=== PATIENT | female | born 2000 | race Caucasian/White ===

== ENCOUNTER → 2025-05-26 | Outpatient (CLI) | payer OTHER, SELFPAY ==
[2025-05-26 13:03] LABS: hCG Titer Quant., Serum < 1 mIU/mL (<9 non-preg)
== END | disposition home or self-care (01) ==
LOC: MTLAB 09:47
PROVIDERS: Referring Provider Physician Assistant; Visit Provider Physician Assistant
DX: L70.0 Acne vulgaris (principal)
CPT/HCPCS: 36415; 84702

== ENCOUNTER → 2025-05-28 | Outpatient (CLI) | payer OTHER, SELFPAY ==
--- OUTSIDE RECORDS SUMMARY | 2025-05-28 07:26 | XMS RPT_ITS | CCD ---
Author Organization [facility] Care Team Providers Care Drilling Superintendent Name Role Phone JORGE LANDAVERDE Admitting Unavailable JORGE LANDAVERDE Attending Unavailable JORGE LANDAVERDE Primary Care Unavailable TOÑO OSMAN Consulting Unavailable PROVIDER, UNKNOWN Consulting Unavailable PROVIDER, UNKNOWN Consulting Unavailable PROVIDER, UNKNOWN Consulting Unavailable Leyla Mcgee PA-C Unavailable La DPM, Dr. Maria G Luz Unavailable Sy RUTLEDGEN, [place] Unavailable Russ Cabrera MD Unavailable Greyson RUTLEDGEN, Jessika Pritchett Unavailable Unavailable Osman Moreno MD Unavailable Claire Salinas MA Unavailable Unavailable LIGHTOUT EXAMINER-C, Juan Manuel Virgen Unavailable Shelbi Araujo RN Unavailable Unavaila wily Wang PA-C, Lalitha Sullivan Unavailable Toño Osman MD Unavailable Gale RUTLEDGEN, Jazmine Dasilva Unavailable Unavailable Unavailable Unavailable Claudio Valle LPN Unavailable Unavailable KAYLYNN SEVERINO APRN Attending Unavail able Leyla Mcgee Primary Care Unavailable Erica Dennis Referring Unavailable Erica Dennis Attending Unavailable Medications Current Medications Medication Drug Class(es) Dates Sig (Normalized) Sig (Original) metroNIDAZOLE 500 mg oral tablet (1 source) Nitroimidazole Antimicrobial Start: 02-26-2025 metroNIDAZOLE 500 mg tablet ; 1 (one) tablet two times daily for 7 days Quantity: 14 {Tablet} Refills: 0 Ordered: 26-Feb-2025 BERRY Valle Start: 26-Feb-2025 Start: 02-26-2025 metroNIDAZOLE 500 mg tablet ; 1 (one) tablet two times daily for 7 days Quantity: 14 {Tablet} Refills: 0 Ordered: 26-Feb-2025 BERRY Valleis Start: 26-Feb-2025 Completed/Discontinued Medications Medication Drug Class(es) Dates Sig (Normalized) Sig (Original) cephalexin 500 mg oral tablet (9 sources) Cephalosporin Antibacterial Start: 11-11-2023 End: 11-16-2023 cephALEXin 500 mg tablet ; 2 (two) tablet two times daily for 5 days Quantity: 20 {Tablet} Refills: 0 Ordered: 11-Nov-2023 ZENAIDA Mcgee Start: 11-Nov-2023 End: 16-Nov-2023 Status: Inactive Start: 10-19-2016 End: 10-29-2016 take 1 capsule by mouth three times daily Cephalexin 500 MG Oral Capsule ; 1 Capsule three times daily for 10 days Quantity: 30 {Capsule} Refills: 0 Ordered: 19-Oct-2016 TRISTAN Javed Start: 19-Oct-2016 End: 29-Oct-2016 Status: Inactive mupirocin 0.02 mg/mg topical ointment (5 sources) RNA Synthetase Inhibitor Antibacterial Start: 06-29-2010 End: 07-06-2010 MUPIROCIN, 2% (External Ointment) ; 1 Ointment three times daily for 7 days Quantity: 22 {Gram(s)} Refills: 0 Ordered: 29-Jun-2010 MD Toño Osman Start: 29-Jun-2010 End: 06-Jul-2010 Status: Inactive Problems Active Problems Problem Classification Problem Date Documented Date Episodic/Chronic Abdominal pain (4 sources) Pain in pelvis; Translations: [Pelvic and perineal pain] 02-23-2025 Episodic Genitourinary symptoms and ill-defined conditions (11 sources) Urinary symptoms ; Translations: [Unspecified symptoms and signs involving the genitourinary system] 11-08-2023 Episodic Immunizations and screening for infectious disease (10 sources) Requires a meningitis vaccination; Translations: [Encounter for immunization] 02-11-2017 Episodic Inflammatory diseases of female pelvic organs (2 sources) Bacterial vaginosis; Translations: [Acute vaginitis] 02-26-2025 Episodic Other ear and sense organ disorders (5 sources) Bilateral hearing loss; Translations: [Unspecified hearing loss, bilateral] 06-29-2010 Chronic Other ear and sense organ disorders (7 sources) Impacted cerumen in right ear; Translations: [Impacted cerumen, right ear] 11-08-2023 Episodic Other female genital disorders (11 sources) Vaginal discharge; Translations: [Other specified noninflammatory disorders of vagina] 11-08-2023 Episodic Other screening for suspected conditions (not mental disorders or infectious disease) (4 sources) Abnormal cervical Papanicolaou smear; Translations: [Unspecified abnormal cytological findings in specimens from cervix uteri] 02-23-2025 Episodic Other skin disorders (1 source) Acne vulgaris; Translations: [Acne vulgaris] Onset: 05-26-2025 Episodic Other upper respiratory infections (5 sources) Acute pharyngitis; Translations: [Acute pharyngitis, unspecified] 10-19-2016 Episodic Skin and subcutaneous tissue infections (5 sources) Abscess; Translations: [Cellulitis, unspecified] 06-29-2010 Episodic Unclassified (5 sources) Well adult female - The patient feels well with no complaints, has good energy level and is sleeping well. The first day of the last menstrual period was : (06/04/23). The patient is not using any method of contraception at this time. The patient has a balanced diet and takes no supplemental vitamins & iron. The patient exercises 3 - 4 times per week. The patient sleeps 7 hours per night. The patient's libido is normal. Note for "Well adult female": Patient has never had cervical cancer screening. She has been sexually active with one partner for the last 9 months. She is interested in routine STI testing. 06-18-2023 Viral infection (7 sources) Verruca vulgaris; Translations: [Viral wart, unspecified] 11-08-2023 Episodic Past or Other Problems Problem Classification Problem Date Documented Date Episodic/Chronic Unclassified (5 sources) UTI - Symptoms include dysuria (Patient reports a constant irritation/burning that worsens with irritation.) and urinary frequency, but do not include urinary urgency, hematuria, malodorous urine, flank pain, abdominal pain or back pain. There is no assiciated pain. Onset was gradual 1 week(s) ago. Onset followed sexual intercourse (Patient reports that the symptoms started shortly after she and her boyfriend had sexual intercourse. She reports that they usually use a condom and they did not this time. She reports that he is her only partner and she is his only partner. She is not concerned about STIs at this time. She reports a normal menstrual period approximately a week and a half ago.). The symptoms occur constantly. The patient describes this as moderate in severity and unchanged. Associated symptoms include vaginal discharge (Patient reports that she is having more vaginal discharge than normal. She reports that the discharge is light green in color and has an odor to it, though she has a difficult time describing this odor.), but do not include fever, chills or nausea. 11-08-2023 Unclassified (5 sources) Ear pain - The onset of the pain has been sudden and has been occurring in a persistent pattern for 1 day (last night about 11pm, pt rubbed her right ear then the ear closed. She tried cleaning the ear but feels that it made it worse). The course has been constant. The pain is described as a moderate pressure and plugged. The pain is described as being located in the inner ear. The pain is felt in the right ear. The symptoms have been associated with decreased hearing, while the symptoms have not been associated with chills, fever, non-purulent discharge from ear, purulent discharge from ear, sore throat, runny nose, cough, tinnitus or vertigo. Medical History does not include ear infections. 07-11-2020 Unclassified (5 sources) Warts - Current treatment includes tape occlusion (tried using duct tape). The warts are located on the left hand (thumb and ring finger) and right hand (every finger except index finger). Onset was 4 year(s) ago. The patient describes this as moderate in severity. Associated symptoms include bleeding (at times) and pain. Note for "Warts": Would like to discuss wart removal today. reviewed by [facility] 01-31-2018 Unclassified (5 sources) Well child visit #4 - 13 to 17 years - The child is here for a 16 to 17 year well-child (Pt here today for well child and sports physical. She is accompanied by mom. She will be a senior in high school this year and participating in volleyball. She is due for meningitis vaccine today.) visit. The primary caregiver is the mother and father. There are no behavioral problems. The patient has a balanced diet, is eating a variety of foods and is allowed to eat "junk" foods. Meals/day: 3 (plus snacks.). The child sleeps 7 hours at night. Menstruation: regular periods, no menstrual discomforts and able to maintain daily schedule. The child performs well in school, interacts poorly with peers and participates in extracurricular activities. Safety measures taken include appropriate use of safety belts, home smoke detectors and avoiding exposure to passive smoke. Note for "Well child visit #4 - 13 to 17 years": reviewed by MATTIE 02-11-2017 Unclassified (5 sources) Cold Symptoms - Symptoms include nasal congestion (the last day or two more congested), ear pain (left ear), sore throat, dry cough (sometimes will be a loose cough), fever (had fever and cold chills the first couple of days), chills, general malaise (body aches), headache (some) and facial pain, but do not include runny nose. The onset was sudden 1 week(s) ago. The symptoms occur constantly. The patient describes this as moderate in severity and unchanged. Current treatment includes acetaminophen and NSAIDs. The patient has been exposed to an individual with an upper respiratory infection (possibly at school). Patient denies history of seasonal allergies, recurrent sinusitis, asthma, tonsillectomy or recurrent ear infections. Note for Upper respiratory infection": Reviewed by NEELA. 10-19-2016 Unclassified (5 sources) Well child visit #4 - 13 to 17 years - The child is here for a 16 to 17 year well-child visit. The primary caregiver is the mother and father. There are no behavioral problems. The patient has a balanced diet. The child sleeps 8 hours at night. Menstruation: regular periods. The child performs well in school and participates in extracurricular activities. Safety measures taken include appropriate use of safety belts and home smoke detectors. Note for Well child visit #4 - 13 to 17 years": Sports physical. Will be playing volleyball. Reviewed by NEELA. 02-15-2016 Unclassified (5 sources) Well child visit #4 - 13 to 17 years - The child is here for a 15 to 16 year well-child visit. The primary caregiver is the mother and father. Help and support are being provided by the father. Family status: coping adequately. There are no behavioral problems. The patient has a balanced diet, is eating a variety of foods and is allowed to eat "junk" foods. There are no eating difficulties. Meals/day: 3. The child sleeps 7 hours at night. Menstruation: regular periods and able to maintain daily schedule. The child performs well in school, interacts well with peers and participates in extracurricular activities (volleyball sports PE today). Safety measures taken include appropriate use of safety belts and home smoke detectors. 02-15-2015 Unclassified (5 sources) Form Completion Physicals - The patient feels well with no complaints, has good energy level and is sleeping well. There are no current symptoms. The patient exercises weekly. The patient has an appropriate balanced diet and takes suppemental vitamins and sleeps on average 7 hours per night. Safety measures include appropriate use of car seats/safety belts, appropriate use of helmets, appropriate use of safety belts, avoiding exposure to passive smoke and awareness of dangers of passenger-side air bags. There are no behavioral problems. Note for "Form completion physical": Sports physical for Volleyball 12-11-2013 Unclassified (5 sources) Form Completion Physicals - The patient feels well with no complaints, has good energy level and is sleeping well. There are no current symptoms. The patient takes no supplemental vitamins or iron and sleeps on average 8 hours per night. There are no behavioral problems. Note for "Form completion physical": Needs a form completed for foster care. 09-17-2012 Unclassified (5 sources) Well child visit #3 - 4 to 12 years - The child is here for a follow-up 11 year well-child visit. The primary caregiver is mother and father. There are no behavioral problems. The patient has a balanced diet. There are no eating difficulties. Meals/day: 3. The child sleeps 8 hours at night. The child performs well in school and interacts well with peers. Safety measures taken include appropriate use of car seats/safety belts. Note for "Well child visit #3 - 4 to 12 years": This note has been reviewed and approved in it's entirety by me. 02-22-2012 Unclassified (5 sources) failed hearing - failed 2 hearing tests at school 06-29-2010 Unclassified (2 sources) Abdominal pain - The onset of the abdominal pain has been sudden and has been occurring in a persistent pattern for 4 days. The course has been increasing. The pain is described as a moderate cramping. The pain is located in the suprapubic area and lower abdomen and radiates to the back, left groin and right groin. The symptoms have been associated with diarrhea and vaginal discharge (For approximately a month and a half has had a lot of "green discharge"), while the symptoms have not been associated with bloating, bloody stools, constipation, dark urine, dysuria, fever, nausea, vaginal bleeding, vomiting or weight loss. Note for "Abdominal pain": Pt states "feels like period cramps but I am not on my period". Patient's last period was approximately 2 weeks ago.Patient does report having unprotected sex with a new male partner 1-2 weeks before the discharge started. 02-23-2025 NEGATED: Highlighted row has been ruled out!Unclassified (4 sources) No Known / History Onset: 06-18-2023 11-08-2023 Results Test Name Value Interpretation Reference Range Facility hCG Titer Quant., Serumon HCG QUANT. < 1 Normal <9 non-preg [facility] Comment on above: Order Comment: Result Comment: Gest ational Age 0.2-1 Week: 5-50 mIU/mL 1-2 Weeks: 50-500 mIU/mL 2-3 Weeks: 100-5000 mIU/mL 3-4 Weeks: 500-10,000 mIU/mL 4-5 Weeks:1000-50,000 mIU/mL 5-6 Weeks: 10,000-100,000 mIU/mL 6-8 Weeks: 15,000-200,000 mIU/mL 2-3 Months:10,000-100,000 mIU/mL Performed By: #### L 700.8000 #### [facility] [address] [place], [place], [id number] BVPCRon 05-19-2025 Bacterial Vaginosis Positive Abnormal Negative [facility] Comment on above: Result Comment: Miranda gonzalez methodology performed on the Collective System. Performed By: #### B VPCR, CVTV #### [facility] [address] [place] [id number] CVTVon 05-17-2025 Regis glabrata Negative Normal Negative [facility] Comment on above: Performed By: #### B VPCR, CVTV #### [address] [address] Regis Species Negative Normal Negative [facility] Comment on above: Result Comment: Mole cular methodology performed on the Collective System. Performed By: #### B VPCR, CVTV #### [address] [address] Trichomonas vaginalis Negative Normal Negative [facility] Comment on above: Performed By: #### B VPCR, CVTV #### [address] [address] BV/VAGINITIS PANEL DNA PROBE on 02-26-2025 REGIS: Not detected Normal NOT DETECTED [facility] Comment on above: Performed By: #### 1 [id number] #### [facility] [place] [address] [address] , [address] [place] [address] Case Packer: Jamaal Singletayr MD #### [id number] #### [facility] [place] [address], [address] [place] [address] Case Packer: Jamaal Singletary MD [facility] [place] [address] [address] , [address] [place] [address] Case Packer: Jamaal Singletary MD GARDNERELLA: Detected Abnormal NOT DETECTED [facility] Comment on above: Result Comment: Incr eased levels of G. vaginalis may not be significant in the absence of signs and symptoms of bacterial vaginosis. Performed By: #### 1 [id number] #### [facility] [place] [address], [address] [place] [address] Case Packer: Jamaal Singletary MD #### [id number] #### [facility] [place] [address], [address] [place] [address] Case Packer: Jamaal Singletary MD [facility] [place] [address], [address] [place] [address] Case Packer: Jamaal Singletary MD TRICHOMONAS: Not detected Normal NOT DETECTED [facility] Comment on above: Performed By: #### 1 [id number] #### [facility] [place] [address] , [address] [place] [address] Case Packer: Jamaal Singletary MD #### [id number] #### [facility] [place] [address] , [address] [place] [address] Case Packer: Jamaal Singletary MD [facility] of [address], [address] [place] [address] Case Packer: Jamaal Singletary MD THINPREP TIS PAP REFLEX HPV mRNA E6/E7, CHLAMYDIA/N.GONORRHOEAEon 02-26-2025 CHLAMYDIA TRACHOMATIS RNA, TMA, UROGENITAL Not detected Normal NOT DETECTED [facility] Comment on above: Performed By: #### 1 [id number] #### [facility] of [address] , [address] [place] [address] Case Packer: Jamaal Singletary MD #### [id number] #### [facility] [place] [address] , [address] [place] [address] Case Packer: Jamaal Singletary MD [facility] of [address], [address] [place] [address] Case Packer: Jamaal Singletary MD CLINICAL INFORMATION: Normal [facility] Comment on above: Result Comment: None given Performed By: #### 1 [id number] #### [facility] [place] [address] , [address] [place] [address] Case Packer: Jamaal Singletary MD #### [id number] #### [facility] [place] [address] , [address] [place] [address] Case Packer: Jamaal Singletary MD [facility] of [place] [id number] Case Packer: Jamaal Singletary MD COMMENT Normal [facility] Comment on above: Result Comment: EXPL ANATORY NOTE: The Pap is a screening test for cervical cancer. It is not a diagnostic test and is subject to false negative and false positive results. It is most reliable when a satisfactory sample, regularly obtained, is submitted with relevant clinical findings and history, and when the Pap result is evaluated along with historic and current clinical information. Performed By: #### 1 4577 #### [facility] [place] [address] Case Packer: Jamaal Singletary MD #### [id number] #### [facility] [place] [address] Case Packer: Jamaal Singletary MD [facility] [place] [address] Case Packer: Jamaal Singletary MD Result Comment: The analytical performance characteristics of this assay, when used to test SurePath(TM) specimens have been determined by [facility]. The modifications have not been cleared or approved by the FDA. This assay has been validated pursuant to the CLIA regulations and is used for clinical purposes. For additional information, please refer to https://education.plista/faq/KOS957 (This link is being provided for information/ educational purposes only.) COMMENT: Normal [facility] Comment on above: Result Comment: This Pap test has been evaluated with the ThinPrep(R) Imaging System. Performed By: #### 1 4577 #### [facility] [place] [address] Case Packer: Jamaal Singletary MD #### [id number] #### [facility] [place] [address] Case Packer: Jamaal Singletary MD [facility] [place] [id number] Case Packer: Jamaal Singletary MD YOUTH DEVELOPMENT PROFESSIONAL: Normal [facility] Comment on above: Result Comment: EMP, CT(ASCP) CT screening location: [facility] [place] [address]. CLIA: [id number] Performed By: #### 1 4577 #### [facility] [place] [address] Case Packer: Jamaal Singletary MD #### [id number] #### [facility] [place] [address], [address] [place] [address] Case Packer: Jamaal Singletary MD [facility] [place] [address], [address] [place] [address] Case Packer: Jamaal Singletary MD INTERPRETATION/RESULT: Normal [facility] Comment on above: Result Comment: Cyto logy Results: Negative for intraepithelial lesion or malignancy. Performed By: #### 1 [id number] #### [facility] [place] [address], [address] [place] [address] Case Packer: Jamaal Singletary MD #### [id number] #### [facility] [place] [address], [address] [place] [address] Case Packer: Jamaal Singletary MD [facility] [place] [address], [address] [place] [address] Case Packer: Jamaal Singletary MD LMP: Normal [facility] Comment on above: Result Comment: None given Performed By: #### 1 4577 #### [facility] [place] [address], [address] [place] [address] Case Packer: Jamaal Singletary MD #### [id number] #### [facility] [place] [address], [address] [place] [address] Case Packer: Jamaal Singletary MD [facility] [place] [address], [address] [place] [address] Case Packer: Jamaal Singletary MD NEISSERIA GONORRHOEAE RNA, TMA, UROGENITAL Not detected Normal NOT DETECTED [facility] Comment on above: Performed By: #### 1 4577 #### [facility] [place] [address], [address] [place] [address] Case Packer: Jamaal Singletary MD #### [id number] #### [facility] [place] [address], [address] [place] [address] Case Packer: Jamaal Singletary MD [facility] of [address] , [address] [place], [place] [id number] Case Packer: Jamaal Singletary MD PREV. BX: Normal [facility] Comment on above: Result Comment: None given Performed By: #### 1 4577 #### [facility] [place] [address] , [address] [place], [place] [id number] Case Packer: Jamaal Singletary MD #### [id number] #### [facility] of [address] , [address] [place] [address] Case Packer: Jamaal Singletary MD [facility] of [address], [address] [place] [address] Case Packer: Jamaal Singletary MD PREV. PAP: Normal [facility] Comment on above: Result Comment: None given Performed By: #### 1 4577 #### [facility] of [address] , [address] [place] [address] Case Packer: Jamaal Singletary MD #### [id number] #### [facility] of [address] , [address] [place] [address] Case Packer: Jamaal Singletary MD [facility] of [address], [address] [place] [address] Case Packer: Jamaal Singletary MD REVIEW YOUTH DEVELOPMENT PROFESSIONAL: Normal [facility] Comment on above: Result Comment: NNO, CT(ASCP) CT screening location: [facility] [place] [address]. CLIA: [id number] Performed By: #### 1 4577 #### [facility] of [address] , [address] [place], [place] [id number] Case Packer: Jamaal Singletary MD #### [id number] #### [facility] of [address] , [address] [place], [place] [id number] Case Packer: Jamaal Singletary MD [facility] of [address], [address] [place] [address] Case Packer: Jamaal Singletary MD SOURCE: Normal [facility] Comment on above: Result Comment: Cerv ix, Endocervix Performed By: #### 1 [id number] #### [facility] of [address], [address] [place] [address] Case Packer: Jamaal Singletary MD #### [id number] #### [facility] of [address], [address] [place] [address] Case Packer: Jamaal Singletary MD [facility] of [address], [address] [place] [address] Case Packer: Jamaal Singletary MD STATEMENT OF ADEQUACY: Normal [facility] Comment on above: Result Comment: Sati sfactory for evaluation. Endocervical/transformation zone component present. Performed By: #### 1 4577 #### [facility] [address], [address] [place] [address] Case Packer: Jamaal Singletary MD #### [id number] #### [facility] [address], [address] [place] [address] Case Packer: Jamaal Singletary MD [facility] of [address], [address] [place] [address] Case Packer: Jamaal Singletary MD Laboratory - Chemistry and C hemistry - challengeon 02-23-2025 Bilirubin Ql (U) Negative Normal [facility] [facility].; [facility], [facility]. Ketones Ql (U) trace Normal [facility], [facility].; [facility], [facility]. pH (U) 8.5 [pH] Abnormal [facility].; [facility], [facility]. Specific gravity (U) [Rel density] 1.020 Normal [facility], [facility].; [facility], [facility]. Urobilinogen Qn (U) 1.0 mg/dL Normal [facility], [facility].; [facility], [facility]. Laboratory - Hematology and Cell countson 02-23-2025 Hemoglobin Ql (U) Negative Normal [facility], [facility].; [facility], [facility]. Laboratory - Specimen inform ationon 02-23-2025 Appearance (U) clear Normal [facility] [employer].; [employer]. Color (U) dark Yellow Normal [employer].; [employer]. Laboratory - Urinalysison Glucose Test strip (U) [Mass/Vol] Negative Normal [facility] [employer], [employer]. Leukocyte esterase Test strip Ql (U) trace Normal [facility] [employer].; [employer], [employer]. Nitrite Ql (U) Negative Normal [facility].; [employer], [employer]. Protein Ql (U) 30 mg/dL Abnormal [facility] [employer].; [email or web address], [employer]. No Panel Informationon 02-23 [id number] SEE NOTE Normal [facility] [employer].; [employer]. [id number] SEE NOTE Normal [facility] [employer].; [employer], [employer]. REGIS: Not detected Normal [facility] [employer].; [employer]. CHLAMYDIA TRACHOMATIS RNA, TMA, UROGENITAL Not detected Normal [facility].; [employer]. CLINICAL INFORMATION: SEE NOTE Normal [facility] [employer].; [employer]. COMMENT: SEE NOTE Normal [employer].; [employer]. YOUTH DEVELOPMENT PROFESSIONAL: SEE NOTE Normal [employer].; [employer]. GARDNERELLA: Detected Abnormal [facility] [employer].; [employer]. INTERPRETATION/RESULT: SEE NOTE Normal [facility] [employer].; [employer]. LMP: SEE NOTE Normal [employer].; [employer]. NEISSERIA GONORRHOEAE RNA, TMA, UROGENITAL Not detected Normal [facility].; [employer]. PREV. BX: SEE NOTE Normal [employer].; [employer], [employer]. PREV. PAP: SEE NOTE Normal [employer].; [employer]. REVIEW YOUTH DEVELOPMENT PROFESSIONAL: SEE NOTE Normal [employer].; [employer], [employer]. SOURCE: SEE NOTE Normal [employer].; [employer]. STATEMENT OF ADEQUACY: SEE NOTE Normal [facility].; [employer] TRICHOMONAS: Not detected Normal [facility].; [employer]. Laboratory - Chemistry and C hemistry - challengeon 11-08-2023 Bilirubin Ql (U) Negative Normal [facility].; [employer] Ketones Ql (U) Negative Normal [facility].; [employer]. pH (U) 6.5 [pH] Normal [facility] [employer].; [employer]. Specific gravity (U) [Rel density] 1.025 Normal [facility] [employer].; [employer] Urobilinogen Qn (U) 0.2 mg/dL Normal [facility].; [employer]. Laboratory - Hematology and Cell countson 11-08-2023 Hemoglobin Ql (U) trace, hemolyzed Abnormal [facility].; [employer]. Laboratory - Specimen inform ationon 11-08-2023 Appearance (U) clear Normal [facility]; [employer]. Color (U) yellow Normal [facility] [employer].; [employer]. Laboratory - Urinalysison Glucose Test strip (U) [Mass/Vol] Negative Normal [facility] [employer].; [employer]. Leukocyte esterase Test strip Ql (U) large Abnormal [facility].; [employer]. Nitrite Ql (U) Negative Normal [facility].; [employer]. Protein Ql (U) 30 mg/dL Abnormal [facility] [employer].; [employer]. No Panel Informationon 11-07 REGIS: Not detected Normal [facility] [employer]Me.; [employer]. CULTURE, URINE, ROUTINE SEE NOTE Abnormal [facility].; [employer]. GARDNERELLA: Not detected Normal [facility] [employer].; [employer]. TRICHOMONAS: Not detected Normal [facility].; [employer]. No Panel Informationon 06-18 [id number] SEE NOTE Normal [facility].; [facility] [employer]. [id number] SEE NOTE Normal [facility].; [place] [employer]. [id number] See Below Normal [facility].; [employer]. Work Phone: CHLAMYDIA TRACHOMATIS RNA, TMA, UROGENITAL Not detected Normal [facility].; [employer]. CLIENT CONTACT: SVETLANA Sullivan Normal [facility].; [employer] Work Phone: CLINICAL INFORMATION: SEE NOTE Normal [facility].; [email or web address], [employer]. COMMENT: SEE NOTE Normal [facility].; [employer]. YOUTH DEVELOPMENT PROFESSIONAL: SEE NOTE Normal [facility].; [employer]. GENERAL CATEGORIZATION: SEE NOTE Abnormal [facility].; [employer]. HPV mRNA E6/E7 Not detected Normal [facility].; [employer]. Work Phone: INTERPRETATION/RESULT: SEE NOTE Abnormal [facility].; [email or web address], Inc. LMP: SEE NOTE Normal [facility].; [employer]. NEISSERIA GONORRHOEAE RNA, TMA, UROGENITAL Not detected Normal [facility]iconductor.; [employer]. PATHOLOGIST: SEE NOTE Normal [facility] [employer].; [employer]. PREV. BX: SEE NOTE Normal [facility].; [employer]. PREV. PAP: SEE NOTE Normal [facility] [employer].; [email or web address], Inc. SOURCE: SEE NOTE Normal [facility].; [email or web address], [employer]. STATEMENT OF ADEQUACY: SEE NOTE Normal [facility].; [email or web address], Inc. TEST CODE: VERBAL AUTH Normal [facility].; [employer]. Work Phone: TEST NAME: XIN PIERCE Normal [place] [employer] [facility]; [facility] HospitalC[facility] Work Phone: TESTOSTERONE, TOTAL & FREE, SERUM [CCL]on 03-10-2022 Testosterone, Free, S 0.63 ng/dL Normal <0.13-1.08 [facility] Comment on above: Result Comment: ---- ADDITIONAL INFORMATION This test was developed and its performance characteristics determined by [facility] in a manner consistent with CLIA requirements. This test has not been cleared or approved by the U.S. Food and Drug Administration. Performed By: #### 2 36541 #### [place] [id number] Testosterone, Total, S 35 ng/dL Normal 8-60 [facility] Comment on above: Result Comment: ---- ADDITIONAL INFORMATION Testing performed by Liquid Chromatography-Tandem Mass Spectrometry (LC-MS/MS). This test was developed and its performance characteristics determined by [facility] in a manner consistent with CLIA requirements. This test has not been cleared or approved by the U.S. Food and Drug Administration. Test Performed by: [facility] [place] [address] Motor Transport Inspector: Roge Marti M.D. Ph.D.; CLIA# [id number] Performed By: #### 2 33406 #### [address] [address] PROGESTERONE [CCL]on 022 PROGESTERONE [CCL] Normal [facility] Comment on above: Result Comment: _PRO GESTERONE [CCL]_ SEE SEPARATE REPORT Performed By: #### 2 26191 #### [facility],[address] [place] [address]8598 T3, FREE [CCL]on 03-07-2022 T3, FREE [CCL] Normal [facility] Comment on above: Result Comment: _T3, FREE(CCL)_ SEE SEPARATE REPORT Performed By: #### 2 28813 #### [facility],[address] [place] [address] 27104 DHEA-S [CCL]on 03-01-2022 DHEA-S 297.0 ug/dL Normal 148.0-407.0 [facility] Comment on above: Result Comment: Refe rence ranges are age and gender specific. For additional information, reference range tables can be found in the laboratory test directory. The normal values are based on the following source: Dehydroepiandrosterone sulfate (DHEA S) [package insert V 17.0 [place]ican]. [employer], [place], [place]: February 2013. [facility] [employer] [facility] [place] [address] Arthur Lucio III, M.D. [id number] Performed By: #### 2 79697 #### [facility],[address] [place] [address] ESTRADIOL-17B [CCL]on 2021 Estradiol-17B 142 pg/mL Normal [facility] Comment on above: Result Comment: This test is not suitable for patients receiving treatment with the drug Fulvestrant (Faslodex). The drug causes an interference leading to falsely elevated estradiol results. Menstrual cycle Estradiol reference ranges: Follicular : < 234 pg/mL Ovulation : 41 to 398 pg/mL Luteal : < 342 pg/mL Estradiol reference ranges vary by gestational period: First trimester : 154 to 3243 pg/mL Second trimester : 1561 to 21940 pg/mL Third trimester : 8285 to >89040 pg/mL Post-menopausal Estradiol reference range: < 41 pg/mL Reference: 1. Estradiol - E2 (Estradiol III) [package insert V 3.0 [place]ican]. [employer], [place], [place], December 2015. [facility] [employer] [facility] CenterElectron [place] [address] Arthur Lucio III, M.D. [id number] Performed By: #### 2 75052 #### [facility],[address] [place] [address] 18262 CMP with eGFRon 02-28-2022 AGE 21 years Normal [facility] Comment on above: Performed By: #### 2 88478 #### [facility],[address] [place] [address] 35007 Albumin [Mass/Vol] 4.3 g/dL Normal 3.4 - 5.0 [facility] Comment on above: Performed By: #### 2 74990 #### [facility],[address] [place] [address] 14690 Albumin/Globulin [Mass ratio] 1.5 {ratio} Normal 0.9 - 1.6 [facility] Comment on above: Performed By: #### 2 89140 #### [facility],[address] [place] [address] 29034 ALK PHOS 33 U/L Low 46 - 116 [facility] Comment on above: Performed By: #### 2 71015 #### [facility],[address] [place] [address] 89674 ALT [Catalytic activity/Vol] 46 U/L Normal 14 - 59 [facility] Comment on above: Performed By: #### 2 68185 #### [facility],[address] [place] [address] 63785 Anion gap [Moles/Vol] 16 mmol/L Normal 10 - 20 [facility] Comment on above: Performed By: #### 2 99840 #### [facility],[address] [place] [address] 24376 AST [Catalytic activity/Vol] 31 U/L Normal 13 - 39 [facility] Comment on above: Performed By: #### 2 42778 #### [facility],[address] [place] [address] 07866 B/C RATIO 19 ratio Normal 0 - 30 [facility] Comment on above: Performed By: #### 2 96519 #### [facility],[address] [place] [address] 12582 Bilirubin [Mass/Vol] 0.4 mg/dL Normal 0.2 - 1.0 [facility] Comment on above: Performed By: #### 2 46154 #### [facility],[address] [place] [address] 89508 Calcium [Mass/Vol] 9.2 mg/dL Normal 8.5 - 10.1 [facility] Comment on above: Performed By: #### 2 00698 #### [facility],[address] [place] [address] 85695 Chloride [Moles/Vol] 104 mmol/L Normal 98 - 107 [facility] Comment on above: Performed By: #### 2 79681 #### [facility],[address] [place] [address] 48731 CMP with eGFR Normal [facility] Comment on above: Result Comment: COMP REHENSIVE METABOLIC PANEL Performed By: #### 2 99532 #### [facility],[address] [place] [address] 41313 CO2 [Moles/Vol] 24.8 mmol/L Normal 21.0 - 32.0 [facility] Comment on above: Performed By: #### 2 31907 #### [facility],[address] [place] [address] 67999 Creatinine [Mass/Vol] 0.72 mg/dL Normal 0.55 - 1.02 [facility] Comment on above: Performed By: #### 2 39352 #### [facility],[address] [place] [address] 38968 GFR/1.73 sq M.predicted among non-blacks MDRD (S/P/Bld) [Vol rate/Area] mL/min/{1.73_m2} Normal 60 - 999 [facility] Comment on above: Performed By: #### 2 71920 #### [facility],[address] [place], [place] [id number] Result Comment: ACCO RDING TO THE NATIONAL KIDNEY DISEASE EDUCATION PROGRAM(NKDE), A NORMAL eGFR IS A VALUE GREATER THAN OR EQUAL TO 60 ML/MIN/1.73 SQ METERS. CHRONIC KIDNEY DISEASE: <60mL/MIN/1.73 SQ METERS KIDNEY FAILURE: <15mL/MIN/1.73 SQ METERS THIS TEST SHOULD ONLY BE USED FOR PATIENTS 18 YEARS OF AGE AND OLDER. Globulin (S) [Mass/Vol] 2.8 g/dL Normal 1.5 - 3.8 [facility] Comment on above: Performed By: #### 2 00563 #### [address] [address] Glucose [Mass/Vol] 92 mg/dL Normal 74 - 106 [facility] Comment on above: Performed By: #### 2 88225 #### [address] [address] Potassium [Moles/Vol] 4.1 mmol/L Normal 3.5 - 5.1 [facility] Comment on above: Performed By: #### 2 58118 #### [address] [address] Protein [Mass/Vol] 7.1 g/dL Normal 6.4 - 8.2 [facility] Comment on above: Performed By: #### 2 47116 #### [address] [address] Sodium [Moles/Vol] 141 mmol/L Normal 136 - 145 [facility] Comment on above: Performed By: #### 2 71331 #### [address] [address] Urea nitrogen [Mass/Vol] 14 mg/dL Normal 7 - 18 [facility] Comment on above: Performed By: #### 2 58526 #### [address] [address] CBC + DIFFon 02-27-2022 Baso # 0.00 x10EE3/UL Normal 0.00 - 0.10 [facility] Comment on above: Performed By: #### 2 07527 #### [facility],[address] [place] [address] 59995 Basophils/100 WBC (Bld) 0.5 % Normal 0.0 - 2.0 [facility] Comment on above: Performed By: #### 2 61878 #### [facility],[address] [place] [address] CBC + DIFF Normal [facility] Comment on above: Result Comment: CBC- COMPLETE BLOOD COUNT Performed By: #### 2 50545 #### [facility],[address] [place] [address] EO # 0.00 x10EE3/UL Normal 0.00 - 0.50 [facility] Comment on above: Performed By: #### 2 64867 #### [facility],[address] [place] [address] Eosinophils/100 WBC (Bld) 0.6 % Normal 0.0 - 7.0 [facility] Comment on above: Performed By: #### 2 27786 #### [facility],[address] [place] [address] Erythrocyte distribution width (RBC) [Ratio] 12.6 % Normal 12.0 - 15.6 [facility] Comment on above: Performed By: #### 2 96293 #### [facility],[address] [place] [address] Hematocrit (Bld) [Volume fraction] 40.1 % Normal 34.0 - 46.0 [facility] Comment on above: Performed By: #### 2 48639 #### [facility],[address] [place], [place] [address] Hemoglobin (Bld) [Mass/Vol] 13.3 g/dL Normal 12.0 - 16.0 [facility] Comment on above: Performed By: #### 2 17281 #### [facility],[address] [place] [address] Lymph # 2.10 x10EE3/UL Normal 0.80 - 2.80 [facility] Comment on above: Performed By: #### 2 74009 #### [facility],[address] [place] [address] Lymphocytes/100 WBC (Bld) 27.8 % Normal 20.0 - 45. 0 [facility] Comment on above: Performed By: #### 2 03347 #### [facility],[address] [place] [address] MANUAL DIFF N/A Normal [facility] Comment on above: Performed By: #### 2 95979 #### [facility],[address] [place] [address] MCH (RBC) [Entitic mass] 32 pg Normal 27 - 33 [facility] Comment on above: Performed By: #### 2 94039 #### [facility],[address] [place] [address] MCHC 33 X10 3 Normal 32 - 36 [facility] Comment on above: Performed By: #### 2 33490 #### [facility],[address] [place], [place] [id number] MCV (RBC) [Entitic vol] 98 fL Normal 80 - 99 [facility] Comment on above: Performed By: #### 2 53847 #### [facility],[address] [place] [address] [place] # 0.50 x10EE3/UL Normal 0.20 - 1.00 [facility] Comment on above: Performed By: #### 2 68246 #### [facility],[address] [place] [address] 41349 MONOS % 6.6 % Normal 0.0 - 10.0 [facility] Comment on above: Performed By: #### 2 41859 #### [facility],[address] [place] [address] Morphology Diogo (Bld) [Interp] N/A Normal [facility] Comment on above: Result Comment: {CD] Performed By: #### 2 73655 #### [facility],[address] [place] [address]26 Neut # 4.90 x10EE3/UL Normal 1.50 - 7.10 [facility] Comment on above: Performed By: #### 2 80344 #### [facility],[address] [place] [address] 79672 Neutrophils/100 WBC (Bld) 64.5 % Normal 46.0 - 76. 0 [facility] Comment on above: Performed By: #### 2 65874 #### [facility],[address] [place] [address] 78698 PLATELET 241 x10EE3/UL Normal 150 - 450 [facility] Comment on above: Performed By: #### 2 38456 #### [facility],[address] [place] [address] 20823 Platelet mean volume (Bld) [Entitic vol] 9.4 fL Normal 6.6 - 10.5 [facility] Comment on above: Result Comment: AUTO MATED DIFFERENTIAL Performed By: #### 2 04575 #### [facility],[address] [place] [address] 87751 RBC 4.11 x 10EE6/UL Normal 4.10 - 5.30 [facility] Comment on above: Performed By: #### 2 57795 #### [facility],[address] [place] [address] 86411 WBC 7.5 x 10EE3/UL Normal 4.5 - 10.8 [facility] Comment on above: Performed By: #### 2 95247 #### [facility],[address] [place] [address] 60637 T4-FREE (FREE THYROXINE)on 0 02-27-2022 Free T4 [Mass/Vol] 0.85 ng/dL Normal 0.76 - 1.46 [facility] Comment on above: Result Comment: P otential of falsely elevated results when biotin concentrations are > 10 ng/mL. Performed By: #### 2 49638 #### [address] [address] TSHon 02-27-2022 TSH Qn 1.86 m[IU]/L Normal 0.35 - 3.74 [facility] Comment on above: Performed By: #### 2 64978 #### [address] [address] VITAMIN B-12on 02-27-2022 Cobalamin (Vitamin B12) [Mass/Vol] 569 pg/mL Normal 193 - 986 [facility] Comment on above: Performed By: #### 2 32521 #### [address] [address] VITAMIN D, 25 HYDROXYon 08- VitD 52.40 ng/mL Normal 30.00 - 100 [facility] Comment on above: Result Comment: 25-O HD3 indicates both endogenous production and supplementation. 25-OHD2 is an indicator of exogenous sources, such as diet or supplementation. Therapy is based on measurement of Total 25-OHD, with levels <20 ng/mL indicative of Vitamin D deficiency, while levels between 20 ng/mL and 30 ng/mL suggest insufficiency. Optimal levels are >=30ng/mL. Vitamin D, 25-OH D3 Not Established Vitamin D, 25-OH D2 Not Established Performed By: #### 2 75107 #### [address] [address] Laboratory - Microbiology an d Antimicrobial susceptibilityOrdered By: Shelbi Araujo on 10-19-2016 S. pyogenes Ag EIA Ql (Throat) Negative Normal [facility], [facility].; [facility], [facility]. No Panel Informationon 10-19 MONOSPOT TEST (IN HOUSE) Negative Normal [facility], [facility].; [facility]. Vital Signs Date Time Vital Sign Value Performing Clinician Facility 02-23-2025 14:46-0400 Body height 167.64 cm Claudio Valle BERRY [facility], [facility].; [facility], [facility]. 02-23-2025 14:46-0400 Body mass index (BMI) [Ratio] 23.4 kg/m2 Claudio Valle BERRY [facility], [facility]. 02-23-2025 14:46-0400 Body surface area Derived from formula 1.74 m2 Claudio Valle MENTAL HEALTH SPECIALIST [facility], [facility].; [facility], [facility]. 02-23-2025 14:46-0400 Body weight 65.77 kg Claudio Valle MENTAL HEALTH SPECIALIST [facility], [facility].; [employer] [facility], [facility]. 02-23-2025 14:46-0400 Diastolic blood pressure 68 mm[Hg] Claudio Valle MENTAL HEALTH SPECIALIST [facility], [facility].; [employer] [facility], Inc[employer] Comment on above: Patient Position: Si tting; Cuff Location: Left Arm; Cuff Size: Standard 02-23-2025 14:46-0400 Heart rate 71 /min Claudio Valle MENTAL HEALTH SPECIALIST [facility], [facility].; [employer] [facility], [employer]. Comment on above: Pattern: Regular 02-23-2025 14:46-0400 Systolic blood pressure 104 mm[Hg] Claudio Valle MENTAL HEALTH SPECIALIST [facility], [facility].; [employer] [facility], [employer]. Comment on above: Patient Position: Si tting; Cuff Location: Left Arm; Cuff Size: Standard 11-08-2023 07:52-0400 Body height 167.64 cm Claire Salinas MA [facility], [facility].; [employer] [facility], [facility]. 11-08-2023 07:52-0400 Body mass index (BMI) [Ratio] 22.92 kg/m2 Claire Salinas MA [facility], [facility].; [employer] [facility], [facility]. 11-08-2023 07:52-0400 Body surface area Derived from formula 1.73 m2 Claire Salinas MA [facility].; [employer] [facility], [facility]. 11-08-2023 07:52-0400 Body weight 64.41 kg Claire Salinas MA [facility].; [employer]. 11-08-2023 07:52-0400 Diastolic blood pressure 83 mm[Hg] Claire Salinas MA [facility].; [employer]. Comment on above: Patient Position: Si tting; Cuff Location: Left Arm; Cuff Size: Standard 11-08-2023 07:52-0400 Heart rate 91 /min Claire Salinas MA [facility].; [employer]. Comment on above: Pattern: Regular 11-08-2023 07:52-0400 Systolic blood pressure 124 mm[Hg] Claire Salinas MA [place] [employer].; [employer]. Comment on above: Patient Position: Si tting; Cuff Location: Left Arm; Cuff Size: Standard 06-18-2023 10:02-0500 Body height 167.64 cm Claire Salinas MA [facility].; [employer]. 06-18-2023 10:02-0500 Body mass index (BMI) [Ratio] 23.89 kg/m2 Claire Salinas MA [facility].; [employer]. 06-18-2023 10:02-0500 Body surface area Derived from formula 1.76 m2 Claire Salinas MA [place] [employer] [facility].; [employer]. 06-18-2023 10:02-0500 Body weight 67.13 kg Claire Salinas MA [place] [employer] [facility].; [employer]. 06-18-2023 10:02-0500 Diastolic blood pressure 80 mm[Hg] Claire Salinas MA [place] [employer]. Comment on above: Patient Position: Si tting; Cuff Location: Left Arm; Cuff Size: Standard 06-18-2023 10:02-0500 Heart rate 75 /min Claire Salinas MA [place] [employer].; [employer]. Comment on above: Pattern: Regular 06-18-2023 10:02-0500 Systolic blood pressure 134 mm[Hg] Claire Salinas MA [employer].; [employer]. Comment on above: Patient Position: Si tting; Cuff Location: Left Arm; Cuff Size: Standard 07-11-2020 09:15-0500 Body height 167.64 cm Shelbi Araujo RN [employer] [facility].; [employer]. 07-11-2020 09:15-0500 Body mass index (BMI) [Ratio] 19.85 kg/m2 Shelbi Araujo RN [employer].; [employer]. 07-11-2020 09:15-0500 Body surface area Derived from formula 1.63 m2 Shelbi Araujo RN [employer].; [employer]. 07-11-2020 09:15-0500 Body temperature 98.1 [degF] Shelbi Araujo RN [employer].; [employer]. Comment on above: Method: Tympanic 07-11-2020 09:15-0500 Body weight 55.79 kg Shelbi Araujo RN [employer].; [employer]. 07-11-2020 09:15-0500 Diastolic blood pressure 75 mm[Hg] Shelbi Araujo RN [employer].; [employer]. Comment on above: Patient Position: Si tting; Cuff Location: Right Arm; Cuff Size: Standard 07-11-2020 09:15-0500 Heart rate 79 /min Shelbi Araujo RN [employer].; [employer]. Comment on above: Pattern: Regular 07-11-2020 09:15-0500 Systolic blood pressure 125 mm[Hg] Shelbi Araujo RN [employer].; [employer]. Comment on above: Patient Position: Si tting; Cuff Location: Right Arm; Cuff Size: Standard 01-31-2018 08:47-0400 Body height 167.64 cm Shelbi Araujo RN [employer].; [employer]. 01-31-2018 08:47-0400 Body mass index (BMI) [Percentile] Per age and sex 39 % Shelbi Araujo RN [employer].; [employer]. 01-31-2018 08:47-0400 Body mass index (BMI) [Ratio] 20.66 kg/m2 Shelbi Araujo RN [employer] [facility], [employer].; [employer]. 01-31-2018 08:47-0400 Body surface area Derived from formula 1.65 m2 Shelbi Araujo RN [employer] [employer] [facility], [employer].; [employer]. 01-31-2018 08:47-0400 Body temperature 98.2 [degF] Shelbi Araujo RN [employer].; [employer]. Comment on above: Method: Tympanic 01-31-2018 08:47-0400 Body weight 58.06 kg Shelbi Araujo RN [employer].; [employer]. 01-31-2018 08:47-0400 Diastolic blood pressure 56 mm[Hg] Shelbi Araujo RN [employer].; [employer]. Comment on above: Patient Position: Si tting; Cuff Location: Left Arm; Cuff Size: Standard 01-31-2018 08:47-0400 Heart rate 76 /min Shelbi Araujo RN [employer].; [employer]. Comment on above: Pattern: Regular 01-31-2018 08:47-0400 Systolic blood pressure 96 mm[Hg] Shelbi Araujo RN [email or web address], [employer].; [employer]. Comment on above: Patient Position: Si tting; Cuff Location: Left Arm; Cuff Size: Standard 02-11-2017 13:57-0400 Body height 167 cm Jessika Rubi LPN [employer] [facility], [employer].; [employer]. 02-11-2017 13:57-0400 Body mass index (BMI) [Percentile] Per age and sex 32 % Jessika Rubi LPN [employer].; [employer]. 02-11-2017 13:57-0400 Body mass index (BMI) [Ratio] 19.84 kg/m2 Jessika Rubi LPN [employer] [facility], [employer].; [employer]. 02-11-2017 13:57-0400 Body surface area Derived from formula 1.62 m2 Jessika Rubi LPN [employer] [facility], Inc.; [employer] 02-11-2017 13:57-0400 Body weight 55.34 kg Jessika Yarely Rubi BERRY [employer] [facility], Inc.; [employer] 02-11-2017 13:57-0400 Diastolic blood pressure 75 mm[Hg] Jessikaberna Rubi BERRY [employer] [facility], Inc.; [employer]. Comment on above: Patient Position: Si tting; Cuff Location: Left Arm; Cuff Size: Standard 02-11-2017 13:57-0400 Heart rate 81 /min Jessika E Greyson SMART [employer] [facility], Inc.; [employer]. Comment on above: Pattern: Regular 02-11-2017 13:57-0400 Systolic blood pressure 115 mm[Hg] Jessika Yarely Rubi BERRY [email or web address], [employer]. Comment on above: Patient Position: Si tting; Cuff Location: Left Arm; Cuff Size: Standard 10-19-2016 13:32-0400 Body height 167.64 cm Shelbi Araujo RN [email or web address], [employer].; [employer]. 10-19-2016 13:32-0400 Body mass index (BMI) [Percentile] Per age and sex 20 % Shelbi Araujo RN [employer].; [employer]. 10-19-2016 13:32-0400 Body mass index (BMI) [Ratio] 18.88 kg/m2 Shelbi Araujo RN [employer].; [employer]. 10-19-2016 13:32-0400 Body surface area Derived from formula 1.59 m2 Shelbi Araujo RN [employer].; [employer]. 10-19-2016 13:32-0400 Body temperature 98.9 [degF] Shelbi Araujo RN [employer].; [employer]. Comment on above: Method: Tympanic 10-19-2016 13:32-0400 Body weight 53.07 kg Shelbi Araujo RN [employer].; [employer]. 02-15-2016 08:25-0400 Body height 166.37 cm Leyla Mcgee PA-C Work Phone: [employer]; [employer] 02-15-2016 08:25-0400 Body mass index (BMI) [Percentile] Per age and sex 0 % Leyla Mcgee PA-C Work Phone: [employer]; [employer] 02-15-2016 08:25-0400 Body mass index (BMI) [Ratio] 10.73 kg/m2 Leyla Mcgee PA-C Work Phone: [employer]; [employer] 02-15-2016 08:25-0400 Body surface area Derived from formula 1.24 m2 Leyla Mcgee PA-C Work Phone: [employer]; [employer] 02-15-2016 08:25-0400 Body weight 29.71 kg Leyla Mcgee PA-C Work Phone: [employer]; [employer] 02-15-2016 08:25-0400 Diastolic blood pressure 77 mm[Hg] Leyla Mcgee PA-C Work Phone: [employer]; [employer]. Comment on above: Patient Position: Si tting; Cuff Location: Left Arm; Cuff Size: Large 02-15-2016 08:25-0400 Heart rate 66 /min Leyla Mcgee PA-C Work Phone: [employer]; [employer] Comment on above: Pattern: Regular 02-15-2016 08:25-0400 Systolic blood pressure 114 mm[Hg] Leyla Mcgee PA-C Work Phone: [employer]; [employer] Comment on above: Patient Position: Si tting; Cuff Location: Left Arm; Cuff Size: Large 02-15-2015 15:08-0400 Body height 165.1 cm Jazmine Beasley LPN [employer]; [employer], [employer]. 02-15-2015 15:08-0400 Body mass index (BMI) [Percentile] Per age and sex 66 % Jazmine Beasley MENTAL HEALTH SPECIALIST [employer] [employer] [facility], Inc.; [email or web address] 02-15-2015 15:08-0400 Body mass index (BMI) [Ratio] 21.63 kg/m2 Jazmine Beasley MENTAL HEALTH SPECIALIST [email or web address], [employer]. 02-15-2015 15:08-0400 Body surface area Derived from formula 1.65 m2 Avrile Brown Beasley MENTAL HEALTH SPECIALIST [email or web address], [employer]. 02-15-2015 15:08-0400 Body weight 58.97 kg Jazmine Beasley LPN [email or web address], [employer]. 02-15-2015 15:08-0400 Diastolic blood pressure 57 mm[Hg] Avrile Brown Beasley MENTAL HEALTH SPECIALIST [email or web address]. Comment on above: Patient Position: Si tting; Cuff Location: Left Arm; Cuff Size: Standard 02-15-2015 15:08-0400 Heart rate 69 /min Jazmine Beasley LPN [email or web address], [employer]. 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 Comment on above: Patient Position: Si tting; Cuff Location: Left Arm; Cuff Size: Standard 12-11-2013 15:02-0400 Body height 161.93 cm Leyla Mcgee PA-C Work Phone: [employer].; [employer]. 12-11-2013 15:02-0400 Body mass index (BMI) [Percentile] Per age and sex 58 % Leyla Mcgee PA-C Work Phone: [email or web address], [employer].; [employer]. 12-11-2013 15:02-0400 Body mass index (BMI) [Ratio] 20.24 kg/m2 Leyla Mcgee PA-C Work Phone: [employer]; [employer] 12-11-2013 15:02-0400 Body surface area Derived from formula 1.55 m2 Leyla Mcgee PA-C Work Phone: [employer]; [employer]. 12-11-2013 15:02-0400 Body weight 53.07 kg Leyla Mcgee PA-C Work Phone: [employer]; [employer]. 12-11-2013 15:02-0400 Diastolic blood pressure 80 mm[Hg] Leyla Mcgee PA-C Work Phone: [employer]; [employer]. Comment on above: Patient Position: Si tting; Cuff Location: Left Arm; Cuff Size: Standard 12-11-2013 15:02-0400 Heart rate 71 /min Leyla Mcgee PA-C Work Phone: [employer]; [employer] Comment on above: Pattern: Regular 12-11-2013 15:02-0400 Systolic blood pressure 117 mm[Hg] Leyla Mcgee PA-C Work Phone: [employer]; [employer]. Comment on above: Patient Position: Si tting; Cuff Location: Left Arm; Cuff Size: Standard 09-17-2012 15:45-0500 Body height 159.38 cm Cony Adams LPN [place] [employer] [facility].; [employer]. 09-17-2012 15:45-0500 Body mass index (BMI) [Percentile] Per age and sex 19 % Cony Adams LPN [employer] [facility].; [employer]. 09-17-2012 15:45-0500 Body mass index (BMI) [Ratio] 16.78 kg/m2 Cony Adams LPN [place] [employer] [facility].; [employer]. 09-17-2012 15:45-0500 Body surface area Derived from formula 1.4 m2 Cony M Angie [facility].; [employer]. 09-17-2012 15:45-0500 Body temperature 98.5 [degF] Cony Mccauley Angie [facility], [facility].; [employer]. Comment on above: Method: Tympanic 09-17-2012 15:45-0500 Body weight 42.64 kg Cony Germainlabach [facility], Inc.; [email or web address], [facility]. 02-22-2012 14:46-0400 Body height 153.67 cm Avrile Brown Beasley [facility], [facility].; [email or web address], [employer]. 02-22-2012 14:46-0400 Body mass index (BMI) [Percentile] Per age and sex 22 % Nelaurele Brown Beasley [facility], [facility].; [email or web address], [employer]. 02-22-2012 14:46-0400 Body mass index (BMI) [Ratio] 16.71 kg/m2 Nelaurele L Gale [facility] [employer] [facility], [facility].; [employer]. 02-22-2012 14:46-0400 Body surface area Derived from formula 1.32 m2 Avrile Brown Beasley [facility] [employer] [facility], [facility].; [email or web address], [employer]. 02-22-2012 14:46-0400 Body weight 39.46 kg Avrile Brown Beasley [facility] [employer] [facility], [facility].; [employer]. 02-22-2012 14:46-0400 Diastolic blood pressure 58 mm[Hg] Neilee L Gale MENTAL HEALTH SPECIALIST [employer] [employer] [facility], [facility].; [employer]. Comment on above: Patient Position: Si tting; Cuff Location: Left Arm; Cuff Size: Standard 02-22-2012 14:46-0400 Heart rate 84 /min Neilee L Gale MENTAL HEALTH SPECIALIST [employer] [facility], Inc.; [employer]. Comment on above: Pattern: Regular 02-22-2012 14:46-0400 Systolic blood pressure 108 mm[Hg] Neilee L Vess MENTAL HEALTH SPECIALIST [employer] [facility], Inc.; [employer]. Comment on above: Patient Position: Si tting; Cuff Location: Left Arm; Cuff Size: Standard 06-29-2010 15:33-0500 Body height 142.24 cm Nesalvador Dasilva Vess MENTAL HEALTH SPECIALIST [email or web address], [facility].; [employer], [employer]. 06-29-2010 15:33-0500 Body mass index (BMI) [Percentile] Per age and sex 31 % Nesalvador Dasilva Vess MENTAL HEALTH SPECIALIST [email or web address], [facility].; [employer] 06-29-2010 15:33-0500 Body mass index (BMI) [Ratio] 16.37 kg/m2 Nelaurele L Vess MENTAL HEALTH SPECIALIST [email or web address], [employer] 06-29-2010 15:33-0500 Body surface area Derived from formula 1.16 m2 Nelaurele L Vess MENTAL HEALTH SPECIALIST [email or web address], [employer] 06-29-2010 15:33-0500 Body weight 33.11 kg Nelaurele Brown Vess MENTAL HEALTH SPECIALIST [email or web address], [employer]. Encounters Encounter Date Encounter Type Care Provider Facility Start: 05-26-2025 ambulatory Leyla Mcgee Facility:[facility] Start: 05-13-2025 End: 05-17-2025 ambulatory [facility] Facility:A Start: 02-26-2025 End: 02-26-2025 Medication Leyla Mcgee PA-C Work Phone: [employer] [facility]. Start: 02-23-2025 End: 02-23-2025 Office outpatient visit 15 minutes Leyla Mcgee PA-C Work Phone: [employer] [facility]. Start: 11-11-2023 End: 11-11-2023 Medication Leyla Mcgee PA-C Work Phone: [email or web address] [facility]. Start: 11-08-2023 End: 11-08-2023 Office outpatient visit 15 minutes Leyla Mcgee PA-C Work Phone: [employer] [facility]. Start: 06-18-2023 End: 06-18-2023 Periodic preventive med est patient 18-39 yrs Leyla Mcgee PA-C Work Phone: [employer]. Start: 02-27-2022 End: 02-27-2022 ambulatory JORGE CARDIOVASCULAR PHYSICIAN ASSISTANT [facility] Start: 07-11-2020 End: 07-11-2020 Office outpatient visit 10 minutes Leyla Mcgee PA-C Work Phone: [employer] Start: 01-31-2018 End: 01-31-2018 Office outpatient visit 15 minutes Leyla Mcgee PA-C Work Phone: [employer] Start: 02-11-2017 End: 02-11-2017 Periodic preventive med est patient 12-17yrs Leyla Mcgee PA-C Work Phone: [employer] Start: 10-19-2016 End: 10-19-2016 Office outpatient visit 15 minutes Leyla Mcgee PA-C Work Phone: [employer] Start: 02-15-2016 End: 02-15-2016 Patient encounter procedure Leyla Mcgee PA-C Work Phone: [employer] Start: 02-15-2015 End: 02-15-2015 Patient encounter procedure Leyla Mcgee PA-C Work Phone: [employer] Start: 12-11-2013 End: 12-11-2013 Patient encounter procedure Leyla Mcgee PA-C Work Phone: [employer] Start: 09-17-2012 End: 09-17-2012 Patient encounter procedure Leyla Mcgee PA-C Work Phone: [employer] Start: 02-22-2012 End: 02-22-2012 Patient encounter procedure Leyla Mcgee PA-C Work Phone: [employer] Start: 06-29-2010 End: 06-29-2010 Patient encounter procedure Leyla Mcgee PA-C Work Phone: [employer] Procedures Date Procedure Procedure Detail Performing Clinician Start: 06-18-2023 End: 06-17-2023 Depression screening Leyla J Mcgee PA-C Work Phone: Start: 06-18-2023 End: 06-18-2023 No Known Past Surgical History Claire Salinas MA Start: 06-18-2023 End: 06-17-2023 Pos clin depres scrn f/u doc Leyla archer PA-C Work Phone: Start: 07-11-2020 End: 07-11-2020 Removal impacted cerumen instrumentation unilat Leyla PRASADC Work Phone: Start: 02-11-2017 End: 02-11-2017 Screening test visual acuity quantitative bilat Russ Cabrera MD Work Phone: Start: 02-15-2015 End: 02-15-2015 Screening test visual acuity quantitative bilat Shelbi PRASADC Work Phone: Start: 12-11-2013 End: 12-11-2013 Screening test visual acuity quantitative bilat Osman Moreno MD Work Phone: Start: 06-29-2010 End: 06-29-2010 Pure tone audiometry air only Toño Osman MD Work Phone: Plan of Treatment Date Care Activity Detail Author Start: 02-23-2025 Iadna chlamydia trachomatis amplified probe tq GC / CHLAMYDIA RNA, TMA-URINE ([id number]) Start: 23-Feb-2025 15:08-04:00 Request [employer].; [employer]. Start: 02-23-2025 Cytp c/v auto thin l yr prepj scr mnl rescr phys ThinPrep Pap with GC/Chlamydia Reflex HPV mRNA ([id number]) ([id number]) Start: 23-Feb-2025 15:07-04:00 Request [employer].; [employer]. Start: 02-23-2025 Iadna regis specie s direct probe tq BV, Yeast, Trich ([id number], [id number], [id number]) Start: 23-Feb-2025 15:07-04:00 Request [employer].; [employer] Start: 11-08-2023 Iadna regis specie s direct probe tq BV, Yeast, Trich ([id number], [id number], [id number]) Start: 08-Nov-2023 08:14-04:00 Request [employer]; [employer] Start: 11-08-2023 Culture bacterial quanttative colony count urine Urine Culture ([id number]) Start: 08-Nov-2023 07:52-04:00 Request [employer].; [employer]. Immunizations Immunization Date Immunization Notes Care Provider Fa williams 02-11-2017 meningococcal oligosaccharide (groups A, C, Y and W-135) diphtheria toxoid conjugate vaccine (MCV4O) Leyla Mcgee PA-C Work Phone: [employer]; [employer] Comment on above: Site: Deltoid (Left) VIS Given: * Meningococcal Vaccine (10/20/2015) 02-11-2017 Meningococcal, MCV4, unspecified conjugate formulation(groups A, C, Y and W-135) Leyla Mcgee PA-C Work Phone: [employer]; [employer] 09-17-2012 varicella virus vaccine Kaylan cca Mcgee PA-C Work Phone: [employer]; [employer]. Comment on above: Site: Deltoid Area ( Left)VIS Given: * Varicella (Chickenpox) (10/02/07) 02-22-2012 tetanus toxoid, redu rc diphtheria toxoid, and acellular pertussis vaccine, adsorbed Leyla Mcgee PA-C Work Phone: [employer]; [employer]. Comment on above: Site: Deltoid (Left) VIS Given: * Tetanus/Diphtheria/(Pertussis) (Td/Tdap) (06/08/08) * Tetanus/Diptheria/Pertussis (Tdap/Td) 08/14/11 01-01-2005 diphtheria, tetanus toxoids and acellular pertussis vaccine Leyla Mcgee PA-C Work Phone: [employer]; [employer]. 01-01-2005 measles, mumps and rubella virus vaccine Leyla Mcgee PA-C Work Phone: [facility].; [facility] 01-01-2005 poliovirus vaccine, inactivated Leyla Mcgee PA-C Work Phone: [facility].; [facility] 11-24-2004 measles, mumps and rubella virus vaccine Leyla Mcgee PA-C Work Phone: [facility].; [facility] 11-24-2004 varicella virus vaccine Kaylan cca Mcgee PA-C Work Phone: [facility].; [facility] 03-30-2003 diphtheria, tetanus toxoids and acellular pertussis vaccine Leyla Mcgee PA-C Work Phone: [facility].; [facility] 03-12-2000 hepatitis B vaccine, pediatric or pediatric/adolescent dosage Leyla Mcgee PA-C Work Phone: [facility].; [facility] 03-12-2000 poliovirus vaccine, inactivated Leyla Mcgee PA-C Work Phone: [facility].; [facility] 1999 diphtheria, tetanus toxoids and acellular pertussis vaccine Leyla Mcgee PA-C Work Phone: [facility].; [facility] 1999 haemophilus influenz ae type b vaccine, PRP-T conjugate Leyla Mcgee PA-C Work Phone: [facility].; [facility] 1999 diphtheria, tetanus toxoids and acellular pertussis vaccine Leyla Mcgee PA-C Work Phone: [facility].; [facility] 1999 haemophilus influenz ae type b vaccine, PRP-T conjugate Leyla Mcgee PA-C Work Phone: [facility].; [facility] 1999 poliovirus vaccine, inactivated Leyla Mcgee PA-C Work Phone: [facility].; [facility] 1999 hepatitis B vaccine, pediatric or pediatric/adolescent dosage Leyla Mcgee PA-C Work Phone: [facility].; [facility] 1999 poliovirus vaccine, inactivated Leyla Mcgee PA-C Work Phone: [facility].; [facility] 1999 diphtheria, tetanus toxoids and acellular pertussis vaccine Leyla Mcgee PA-C Work Phone: [facility].; [facility] 1999 haemophilus influenz ae type b vaccine, PRP-T conjugate Leyla Mcgee PA-C Work Phone: [facility].; [facility] 1999 hepatitis B vaccine, pediatric or pediatric/adolescent dosage Leyla Mcgee PA-C Work Phone: [facility].; [facility] Payers Date Payer Category Payer Self-pay 2025 Unknown [id number] 1999 Unknown [id number] Unknown [id number] Unknown [employer] Unknown [id number] Social History Date Type Detail Facility Parents Parents [facility] [employer] [facility].; [facility] Tobacco/Smoke Exposure: Tobacco/ Smoke Exposure: ; None. [facility].; [employer] [facility] Female [facility] [employer] [facility].; [place] [employer] [facility] Work Phone: None [facility] [employer] [facility] Work Phone: Summary Purpose Family History No Family History Records Found No Known Family History Onset: 3 Status:Active No Known Family History Onset: 3 Status:Active No Known Family History Onset: 3 Status:Active No Known Family History Onset: 3 Status:Active No Known Family History Onset: 3 Status:Active Advance Directives No Advanced Directives Records FoundNo Advanced Directives Records FoundNo Advanced Directives Records FoundNo Advanced Directives Records Found Additional Source Comments INFORMATION SOURCE (unrecogn ized section and content) DATE CREATED AUTHOR 03/14/2022 [facility] DATE CREATED AUTHOR AUTHOR'S ORGANIZ ATION 02/28/2025 [facility] DATE CREATED AUTHOR AUTHOR'S ORGANIZ ATION 05/21/2025 [facility] DATE CREATED AUTHOR AUTHOR'S ORGANIZ ATION 05/28/2025 [facility] FOR RECORDS PERTAINING TO PATIENTS WHO ARE OR HAVE BEEN ENROLLED IN A CHEMICAL DEPENDENCY/SUBSTANCEABUSE PROGRAM, SOME INFORMATION MAY BE OMITTED. This clinical summary was aggregated from multiple sources. Caution should be exercised in using it in the provision of clinical care. This summary normalizes information from multiple sources, and as a consequence, information in this document may materially change the coding, format and clinical context of patient data. In addition, data may be omitted in some cases. CLINICAL DECISIONS SHOULD BE BASED ON THE PRIMARY CLINICAL RECORDS. [employer] [facility]. provides no warranty or guarantee of the accuracy or completeness of information in this document.
[2025-05-28 10:39] LABS: AST(SGOT) 17 U/L (<=31); Alanine Aminotransfer ALT/SGPT 15 U/L (<=34); Cholesterol 170 mg/dL (<=200); Low Density Lipoprotein Calc. 85 mg/dL; Triglycerides 85 mg/dL; Very Low Density Lipoprotein 17 mg/dL (5-40); cholesterol:hdl ratio screen 2.46
[2025-05-29 04:07] LABS: LDL, Direct 120295 85 mg/dL (0-99)
== END | disposition home or self-care (01) ==
LOC: MTLAB 07:05
PROVIDERS: Referring Provider Physician Assistant; Visit Provider Physician Assistant
DX: L70.0 Acne vulgaris (principal)
CPT/HCPCS: 36415; 80061; 83721; 84450; 84460